=== PATIENT | female | born 1945 | race Caucasian/White ===

== ENCOUNTER → 2020-02-02 | Outpatient (CLI) | payer MEDICARE ==
--- NOTE | 2020-02-02 10:35 | US ---
EXAMINATION TYPE: US venous doppler duplex LE RT DATE OF EXAM: 02/02/2020 10:16 AM COMPARISON: NONE CLINICAL HISTORY: I80.9 PHLEBITIS,M79.671 PAIN IN RT FOOT,. Swelling in right foot, right calcific pl saul fasciitis. SIDE PERFORMED: Right TECHNIQUE: The lower extremity deep venous system is examined utilizing real time linear array sonog tariq with graded compression, doppler sonography and color-flow sonography. VESSELS IMAGED: Common Femoral Vein Deep Femoral Vein Greater Saphenous Vein * Femoral Vein Popliteal Vein Small Saphenous Vein * Proximal Calf Veins (* superficial vessels) Right Leg: Negative for DVT. Hyperechoic right groin lymph node is seen = 2.7 x 2.0 x 0.9cm. Negativ e for SVT as Great Saphenous Vein was assessed along its course. IMPRESSION: No evidence for DVT.
== END | disposition home or self-care (01) ==
LOC: RADUSWWP 09:48
PROVIDERS: ATTEND Orthopaedic Surgery
DX: M79.671 Pain in right foot (principal); M72.2 Plantar fascial fibromatosis; M25.571 Pain in right ankle and joints of right foot; I80.9 Phlebitis and thrombophlebitis of unspecified site